=== PATIENT | male | born 1980 | race Caucasian/White ===

== ENCOUNTER 2018-06-16 11:28 | Emergency (ER) | payer SELFPAY ==
[~2018-06-16] VITALS: Ht 177.8 cm; Wt 102.1 kg
[~2018-06-16 11:28] MED LIST: DAYPRO600 M1 PO; FLEXERIL10 MG PO; KEFLEX500 MG PO; MEDROL DOSEPAK4 MG PO; PREDNICOT20 MG PO; ROBAXIN750 MG PO; TOBREX OPHTH S2.5 ML OPH; ULTRAM50 MG PO; VICODIN 500 MG-1 TAB PO
[2018-06-16] MEDS ORDERED: AMOXICILLIN500 M2 PO (12:15)
== END 2018-06-16 12:25 | disposition home or self-care (01) ==
LOC: ED 11:28
DX: K08.89 Other specified disorders of teeth and supporting structures (principal); Z88.6 Allergy status to analgesic agent; Z88.8 Allergy status to other drugs, medicaments and biological substances